=== PATIENT | male | born 1960 | race Caucasian/White ===

== ENCOUNTER 2024-06-19 10:09 | Inpatient (IN) | payer BC ==
[~2024-06-19] VITALS: Ht 182.9 cm; Wt 74.0 kg
--- NOTE | 2024-06-19 16:00 | NUR ---
WENT AND GOT PT FROM ADMISSIONS. BROUGHT PT UP TO FLOOR BY W/C. WITH PT. TRANSPORTED PT HERE FROM [facility]. BELONGINGS BROUGHT TO ROOM. PT ORIENTED TO ROOM AND SURROUNDINGS. PT IS NEAR DEAF AND USES PERSONAL DEVICE TO TRANSLATE WHAT IS BEING SAID TO HIM. INTAKE AND ASSESSMENT COMPLETE. NO FURTHER NEEDS AT THIS TIME. CALL LIGHT WITHIN REACH.
[2024-06-19] MEDS ORDERED: TRESIBA FL200 UNIT/1 SQ (16:24)
[2024-06-19] MEDS ORDERED: LIPITOR20 MG PO (16:25)
[2024-06-19] MEDS ORDERED: ZITHROMAX500 M2 PO (16:26)
[2024-06-19] MEDS ORDERED: ETHAMBUTOL HYD400 MG PO (16:27)
[2024-06-19] MEDS ORDERED: LOPRESSOR 225 MG/TAB PO (16:27)
[2024-06-19] MEDS ORDERED: RIFADIN300 MG PO (16:28)
[2024-06-19] MEDS ORDERED: NEXIUM 20MG20 MG PO (16:29)
[2024-06-19] MEDS ORDERED: OYSCO 500 + D 51 TAB PO (16:29)
[2024-06-19] MEDS ORDERED: NOVLOG SQ (16:30)
[2024-06-19] MEDS ORDERED: Naloxone 0.4 MG/ML VIAL IV PRN (16:30)
[2024-06-19] MEDS ORDERED: Acetaminophen 325 MG TAB PO PRN (16:30)
[2024-06-19] MEDS ORDERED: LASIX 20MG TABL20 MG PO (16:30)
[2024-06-19] MEDS ORDERED: Docusate Sodium 100 MG CAP PO PRN (16:30)
[2024-06-19] MEDS ORDERED: CULTURELLE CAP1 EAC1 PO (16:31)
[2024-06-19] MEDS ORDERED: MAG-OX 400400 MG/TAB PO (16:31)
[2024-06-19] MEDS ORDERED: CLOFAZIMINE PO (16:32)
[2024-06-19] MEDS ORDERED: K-TAB20 PO (16:33)
[2024-06-19] MEDS ORDERED: SODIUM CHLORI1000 M4 PO (16:34)
[2024-06-19] MEDS ORDERED: MASON NATURAL2000 IU PO (16:36)
[2024-06-19] MEDS ORDERED: URE-NA PO (16:36)
[2024-06-19] MEDS ORDERED: B-121000 MCG PO (16:36)
[2024-06-19] MEDS ORDERED: Insulin Lispro (HumaLOG) SQ SCH ×2 (16:41→17:00)
[2024-06-19 17:00] VITALS: BP_SYST 100
[2024-06-19] MEDS ORDERED: Dextrose 50% Water 25 GM/50 ML SYRINGE IV PRN (17:00)
[2024-06-19] MEDS ORDERED: Dextrose (Glucose) 15 GM (4 x 3.75 GM) Chewable TABLET PACK PO PRN (17:00)
[2024-06-19] MEDS ORDERED: Glucagon 1 MG VIAL IM PRN (17:00)
[2024-06-19 17:04] VITALS: BP 100/58; PULSE 83; TEMP 98.2
[2024-06-19] MEDS ORDERED: ALPRAZolam 0.25 MG TAB PO PRN (17:45)
[2024-06-19 19:00] VITALS: BP_SYST 100
[2024-06-19 20:51] VITALS: BP 107/65
[2024-06-19] MEDS ORDERED: Sennosides/Docusate 8.6-50 MG TAB PO SCH (21:00)
[2024-06-19] MEDS ORDERED: Insulin Glargine-ygfn (Lantus) SQ SCH (21:00)
[2024-06-19] MEDS ORDERED: Metoprolol Tartrate 25 MG TAB PO SCH (21:00)
[2024-06-19] MEDS ORDERED: Magnesium Oxide 400 MG TAB PO SCH (21:00)
--- NOTE | 2024-06-19 22:04 | NUR ---
Patient assessed around 2054. Alert and oriented, and able to make needs known. Patient is deaf. Has IPAD in room that writes what is said in room so that patient can read it and respond. Denies having pain and discomfort. Denies SOB and dyspnea. LS CTA. HRR. BSAx4. No edema. Voices no questions, needs, or concerns at this time. In bed with call light within reach. Bed alarm on.
[2024-06-20] MEDS ORDERED: Heparin 5,000 UNITS/ML 1 ML VIAL SQ SCH
[2024-06-20 05:34] VITALS: BP 97/49; PULSE 80; TEMP 98.4
--- NOTE | 2024-06-20 05:57 | NUR ---
Patient called to go to the bathroom during the night. Ambulated well with walker, gait steady. Has denied having pain and discomfort. Voices no questions, needs, or concerns at this time. In bed with call light within reach. Bed alarm on. IPAD next to bed to help with communication due to patient being deaf (IPAD writes out what is being said in room so that he can read it and respond).
[2024-06-20 07:00] VITALS: BP_SYST 97
[2024-06-20] MEDS ORDERED: Esomeprazole 20 MG **** subs to Pantoprazole 20 MG PO SCH (07:00)
--- NOTE | 2024-06-20 08:00 | NUR ---
Pt a&ox4. VSS. No c/o pain at this time. Uses personal device to translate conversations d/t hearing deficits. Currently in bed eating breakfast. Shift assessment complete and medications administered. SBA with walker and gait belt. No further needs at this time. Call light and personal belongings within reach.
[2024-06-20] MEDS ORDERED: Polyethylene Glycol 3350 17 GM PDS PO SCH (09:00)
[2024-06-20] MEDS ORDERED: UREA 15 GM PO SCH (09:00)
[2024-06-20] MEDS ORDERED: Calcium Carb/Vit D3 500 mg-5 mcg(200 Units) TAB PO SCH (09:00)
[2024-06-20] MEDS ORDERED: Furosemide 20 MG TAB PO SCH (09:00)
[2024-06-20] MEDS ORDERED: Cholecalciferol (Vit D3) 25 MCG (1,000 Units) TAB PO SCH (09:00)
[2024-06-20] MEDS ORDERED: Cyanocobalamin (Vit B-12) 1,000 MCG TAB PO SCH (09:00)
--- NOTE | 2024-06-20 16:04 | NUR ---
SW met with patient to complete initial assessment for discharge planning. Patient able to complete assessment with assistance of tablet to communicate due to being severely hard of hearing. Patient confirmed that he lives at home in [place] with his Catrachita ([phone]). He states his is his DPOA. Patient sees Jena Sebastian APRN as his PCP and uses [facility] without difficulty. Patient has a rollator walker, shower chair, bed rail and grab bars. He states he has a CPAP but does not use it. Patient states he has a ramp into his home, there is are stairs inside his home but he does not go downstairs per report. Patient has a caregiver 5 days per week for 6 hours daily. SW educated patient on process of team conferences and updates on discharge planning. Plan for discharge will be dependent on progess with therapy. Discharge plan: re-eval
--- NOTE | 2024-06-20 16:15 | NUR ---
Pt's BS was 130. BS taken from patient's own continuous glucose monitor.
[2024-06-20 18:16] VITALS: BP 101/55; PULSE 71; TEMP 98
[2024-06-20 19:00] VITALS: BP_SYST 101
[2024-06-20] MEDS ORDERED: Atorvastatin 20 MG TAB PO SCH (21:00)
--- NOTE | 2024-06-20 22:19 | NUR ---
PT SITTING IN BED. CALL LIGHT IS WITHIN REACH. NO COMPLAINTS AT THIS TIME. MEDICATIONS ADMINISTERED PER EMAR. ASSESSMENT COMPLETED EARLIER.
--- NOTE | 2024-06-21 00:30 | NUR ---
Patient resting in bed, looks comfortable, respirations even and unlabored.
[2024-06-21 03:52] VITALS: TEMP 98.6
[2024-06-21 05:56] VITALS: BP 114/64; PULSE 91; TEMP 98.4
--- NOTE | 2024-06-21 08:00 | NUR ---
PT A&OX4. VSS. NO C/O PAIN AT THIS TIME. PT IS CURRENTLY UP IN RECLINER EATING BREAKFAST. PT IS A SBA W/ WALKER. SHIFT ASSESSMENT COMPLETE AND MEDS ADMINISTERED. NO FURTHER NEEDS AT THIS TIME. CALL LIGHT WITHIN REACH.
--- NOTE | 2024-06-21 11:57 | NUR ---
SW met with pt to check in and assess for needs. He reports no needs and SW discussed family meeting for Monday at 10:!5am. Pt reports his is arriving for lunch and he will discuss with her and inform IKER. SW provided her number on board. Discharge Plan: re-eval
--- NOTE | 2024-06-21 11:58 | NUR ---
PATIENT'S BS IS 156. PULLED FROM HIS OWN CONTINUOUS GLUCOSE MONITOR.
--- NOTE | 2024-06-21 16:57 | NUR ---
Pt hit arm on rail in bathroom and got a skin tear. Cleaned up area on RFA and applied steri strips.
[2024-06-21 17:40] VITALS: BP 115/62; PULSE 89; TEMP 99
[2024-06-21 19:12] VITALS: BP_SYST 115
--- NOTE | 2024-06-21 20:47 | NUR ---
Patient assessed at this time, see shift assessment, reports headache tylenol given per request,has a dexcom on his abdomen, denies further needs, call light and personal items within reach, will continue to monitor.
[2024-06-21 21:00] VITALS: BP 91/53; PULSE 86
[2024-06-22] VITALS (7 sets, daily range): BP systolic 90–121; BP diastolic 53–61; PULSE 68–105; TEMP 97.7–98
--- NOTE | 2024-06-22 01:14 | NUR ---
Callled Danny the PA and made him aware that patient has been having soft pressures, denies dizziness, no new orders at this time.
[2024-06-22 06:28] LABS: BASO % 0.8 % (0.0-2.0); EOS % 0.4 % (0.0-4.0); GRAN # 1.5 K/mm3 (1.4-6.5); GRAN % 60.6 % (42.2-75.2); LYMPH # 0.6 K/mm3 (1.2-3.4); LYMPH % 24.3 % (20.0-51.0); MEAN CELL VOLUME 82 fl (80.0-100.0); MEAN CORPUSCULAR HGB CONC 33 g/dl (33.0-37.0); MEAN PLATELET VOLUME 10.6 fl (7.4-10.4); MONO # 0.3 K/mm3 (0.1-0.6); MONO % 13.5 % (1.7-9.3); PLATELET COUNT 165 K/mm3 (130-400); RED BLOOD COUNT 2.88 M/mm3 (4.20-5.60); REDCELL DISTRIBUTION WIDTH-CV 17.8 % (11.5-14.5)
[2024-06-22 06:41] LABS: HEMATOCRIT 23.5 % (42.0-52.0); HEMOGLOBIN 7.7 g/dl (13.5-18.0); MEAN CORPUSCULAR HEMOGLOBIN 27 pg (27-31)
[2024-06-22 06:46] LABS: CALCIUM 9.9 mg/dL (8.4-10.2); CREATININE, serum 1.94 mg/dL (0.72-1.25); POTASSIUM 3.8 mEq/L (3.5-4.5)
--- NOTE | 2024-06-22 09:16 | NUR ---
PT UP TO RECLINER FOR BREAKFAST. PT IS SBA X1. UP TO BR VOIDED AND RETURNED TO RECLINER. PT AMBULATED WITH STEADY GAIT. EATING AND DRINKING. PT HAS A GLUTEN INTOLERANCE. CARE PLAN REVIWED AFTER TAKING AM MEDS. PT USING I PAD FOR TRANSLATION OF CONVERSATION FOR HEARING IMPAIRED.
--- NOTE | 2024-06-22 20:55 | NUR ---
Patient assessed at this time, see shift assessment, A/Ox4, reports back pain, requested tylenol and given, denies further needs, call light and personal items within reach, will continue to monitor.
--- NOTE | 2024-06-23 00:28 | NUR ---
Patient up in a chair at this time, reports back pain is fine, will continue to monitor.
--- NOTE | 2024-06-23 01:24 | NUR ---
Patient up to the bathroom at this time and voided, then back to his bed, denies further needs.
[2024-06-23 06:00] VITALS: BP 109/62; PULSE 84; TEMP 98.5
[2024-06-23 06:30] VITALS: BP_SYST 109
--- NOTE | 2024-06-23 09:54 | NUR ---
PT UP TO RECLINER FOR BREAKFAST. UP TO BR WITH SBAX1, VOIDED AND RETURNED TO BED. WATCHING TV AND READING. ASSESSMENTS COMPLETE, VSS, CAREPLAN REVIEWED. PT USING IPAD FOR COMMUNICATION.
--- NOTE | 2024-06-23 19:20 | NUR ---
PT SITTING IN BED. NO COMPLAINTS AT THIS TIME. CALL LIGHT IS WITHIN REACH.
--- NOTE | 2024-06-24 00:49 | NUR ---
ASSESSMENT COMPLETED EARLIER. MEDICATIONS ADMINISTERED PER EMAR. NO COMPLAINTS AT THIS TIME. CALL LIGHT IS WITHIN REACH.
[2024-06-24 05:15] VITALS: BP 116/56; PULSE 92; TEMP 98.5
--- NOTE | 2024-06-24 06:55 | NUR ---
awake sitting up in chair, bedside shift report received from COMFORT Toro
[2024-06-24 06:57] LABS: BASO % 0.8 % (0.0-2.0); GRAN # 1.8 K/mm3 (1.4-6.5); GRAN % 68.3 % (42.2-75.2); LYMPH # 0.5 K/mm3 (1.2-3.4); LYMPH % 20.3 % (20.0-51.0); MEAN CELL VOLUME 83 fl (80.0-100.0); MEAN CORPUSCULAR HGB CONC 33 g/dl (33.0-37.0); MEAN PLATELET VOLUME 11.4 fl (7.4-10.4); MONO # 0.3 K/mm3 (0.1-0.6); MONO % 10.2 % (1.7-9.3); PLATELET COUNT 175 K/mm3 (130-400); RED BLOOD COUNT 2.83 M/mm3 (4.20-5.60); REDCELL DISTRIBUTION WIDTH-CV 17.9 % (11.5-14.5); RETIC % 3.7 % (0.5-3.52)
[2024-06-24 07:03] LABS: HEMATOCRIT 23.5 % (42.0-52.0); HEMOGLOBIN 7.7 g/dl (13.5-18.0); MEAN CORPUSCULAR HEMOGLOBIN 27 pg (27-31)
[2024-06-24 07:12] LABS: CALCIUM 10.1 mg/dL (8.4-10.2); CREATININE, serum 2.11 mg/dL (0.72-1.25); POTASSIUM 4.2 mEq/L (3.5-4.5)
[2024-06-24 07:20] VITALS: BP_SYST 116
--- NOTE | 2024-06-24 08:15 | NUR ---
resting in bed, full assessment completed, see interventions for further info, medicated with tylenol 650mg per patient's request for c/os headache, BP 95/51, denies other needs
[2024-06-24] MEDS ORDERED: Insulin Lispro (HumaLOG) SQ SCH (08:23)
[2024-06-24 08:40] VITALS: BP 95/51
--- NOTE | 2024-06-24 09:50 | NUR ---
occupational therapy in to work with patient and assist him with taking a shower
--- NOTE | 2024-06-24 10:14 | NUR ---
ambulating with steady gait in [place] with occupational therapy
--- NOTE | 2024-06-24 10:57 | NUR ---
out of room and working with physical therapy
--- NOTE | 2024-06-24 13:18 | NUR ---
out of room and working with physical therapy
[2024-06-24 13:55] VITALS: BP 109/56
--- NOTE | 2024-06-24 14:00 | NUR ---
c/o headache, BP 109/56, medicated with tylenol 650mg po per his request
--- NOTE | 2024-06-24 14:52 | NUR ---
Admission QIM scores were reviewed by the team. Code of 4 chosen for 1 step was determined by team discussion to be the most usual performance before interventions for this patient during the assessment period.--PD Liseth
--- NOTE | 2024-06-24 15:17 | NUR ---
resting in bed with TV on, denies needs
[2024-06-24] MEDS ORDERED: Polyethylene Glycol 3350 17 GM PDS PO PRN (16:07)
--- NOTE | 2024-06-24 17:18 | NUR ---
fur floor worker attempted to meet with patient to introduce herself. Patient is hard of hearing and uses a tablet to understand what someone is saying. Patient was fast asleep and could not hear social director to wake to verbal cues. SW will follow up with patient.
[2024-06-24 18:22] VITALS: BP 116/56; PULSE 87; TEMP 97.7
--- NOTE | 2024-06-24 18:57 | NUR ---
bedside shift report given to COMFORT Toro
--- NOTE | 2024-06-24 19:15 | NUR ---
PT SITTING IN BED. AT BEDSIDE. CALL LIGHT IS WITHIN REACH. NO COMPLAINTS AT THIS TIME.
[2024-06-24 19:17] VITALS: BP_SYST 116
--- NOTE | 2024-06-24 21:34 | NUR ---
ASSESSMENT COMPLETED EARLIER. MEDICATIONS ADMINISTERED PER EMAR. NO COMPLAINTS AT THIS TIME. CALL LIGHT IS WITHIN REACH. VSS. PT IS CURRENTLY LAYING IN BED. BED IS IN LOWEST POSITION.
[2024-06-25 06:14] VITALS: BP 115/63; BP_SYST 155; PULSE 84; TEMP 98.3
[2024-06-25 06:50] LABS: BASO % 0.8 % (0.0-2.0); GRAN # 1.7 K/mm3 (1.4-6.5); GRAN % 64.1 % (42.2-75.2); LYMPH # 0.6 K/mm3 (1.2-3.4); LYMPH % 22.4 % (20.0-51.0); MEAN CELL VOLUME 84 fl (80.0-100.0); MEAN CORPUSCULAR HGB CONC 32 g/dl (33.0-37.0); MEAN PLATELET VOLUME 10.8 fl (7.4-10.4); MONO # 0.3 K/mm3 (0.1-0.6); MONO % 12.7 % (1.7-9.3); PLATELET COUNT 146 K/mm3 (130-400); RED BLOOD COUNT 2.82 M/mm3 (4.20-5.60); REDCELL DISTRIBUTION WIDTH-CV 17.9 % (11.5-14.5)
[2024-06-25 06:51] LABS: HEMATOCRIT 23.7 % (42.0-52.0); HEMOGLOBIN 7.5 g/dl (13.5-18.0); MEAN CORPUSCULAR HEMOGLOBIN 27 pg (27-31)
[2024-06-25 07:00] VITALS: BP_SYST 115
[2024-06-25 07:03] LABS: CALCIUM 10.1 mg/dL (8.4-10.2); CREATININE, serum 1.99 mg/dL (0.72-1.25); POTASSIUM 4.2 mEq/L (3.5-4.5)
--- NOTE | 2024-06-25 08:00 | NUR ---
PT A&OX4. VSS. NO C/O PAIN AT THIS TIME. USED PT'S OWN DEVICE TO COMMUNICATE W/ HIM D/T HEARING LOSS. SHIFT ASSESSMENT COMPLETE AND MEDICATIONS ADMINISTERED. PT IS SBA W/ WALKER. NO FURTHER NEEDS AT THIS TIME. CALL LIGHT WITHIN REACH.
--- NOTE | 2024-06-25 11:36 | NUR ---
Pt's BS is 211 at this time. BS pulled from pt's own CGM device.
--- NOTE | 2024-06-25 16:45 | NUR ---
pt's BS was 199. BS pulled from pt's Agilvax.
[2024-06-25 17:42] VITALS: BP 100/51; PULSE 78; TEMP 78
[2024-06-25 19:00] VITALS: BP_SYST 100
--- NOTE | 2024-06-25 19:12 | NUR ---
PT LAYING IN BED. NO COMPLAINTS AT THIS TIME. CALL LIGHT IS WITHIN REACH. LAP SITES WERE OBSERVED-CDI. PT CURRENTLY HAS ZOSYN RUNNING IN . HAS O2 VIA N/C. BED IS IN LOWEST POSITION.
--- NOTE | 2024-06-25 20:27 | NUR ---
PT BG IS 181 PER DEXCOM
--- NOTE | 2024-06-25 21:48 | NUR ---
ASSESSMENT COMPLETED EARLIER. MEDICATIONS ADMINISTERED PER EMAR. NO COMPLAITNS AT THIS TIME. CALL LIGHT IS WITHIN REACH. PT HAD BEEN UP TO URINATE MULTIPLE TIMES.
[2024-06-26 05:02] VITALS: BP 103/50; PULSE 92; TEMP 98.3
--- NOTE | 2024-06-26 06:53 | NUR ---
Pt's BS was 208. BS pulled from pt's own dexcom.
[2024-06-26 07:00] VITALS: BP_SYST 103
--- NOTE | 2024-06-26 08:41 | NUR ---
PT A&OX4. VSS. NO C/O PAIN AT THIS TIME. SHIFT ASSESSMENT COMPLETE AND MEDICATIONS ADMINISTERED. COMMUNICATE WITH PT USING PT'S OWN DEVICE FOR TRANSLATION D/T DEAFNESS. PT IS A SBA W/ WALKER. NO FURTHER NEEDS AT THIS TIME. PT CURRENTLY SITTING ON EDGE OF BED EATING BREAKFAST. CALL LIGHT WITHIN REACH.
--- NOTE | 2024-06-26 11:50 | NUR ---
PT'S BS IS 194. PT'S BS WAS PULLED FROM PT'S OWN DEXCOM.
--- NOTE | 2024-06-26 16:49 | NUR ---
PT'S BS IS 163. BS WAS PULLED FROM PT'S OWN DEXCOM.
--- NOTE | 2024-06-26 17:35 | NUR ---
music worker attended IPR team conference to discuss discharge plan. The team would like to set discharge date for Monday next week with either home health or OP PT/OT. SW attended family meeting with patient, his , son and IPR team. Patient is okay with discharge on Monday and would like OP PT at [facility] in . No equipment needs. IKER met with patient, reviewed and provided a copy of the IPR team conference notes. No questions or concerns. IKER was notified by Eden, IPR director, that patient's insurance denied additional days for patient and he would need to discharge on Monday. IKER notified patient's whom reported she would be okay to mushroom picker patient at 5 pm on Monday. IKER notified patient whom initially asked why that happened but was okay with returning home with OP PT on Monday. Discharge plan: Home with OP PT 06/28/24
[2024-06-26 17:55] VITALS: BP 121/68; PULSE 78; TEMP 98.1
[2024-06-26 19:18] VITALS: BP_SYST 121
--- NOTE | 2024-06-26 19:18 | NUR ---
PT LAYING IN BED RESTING. CALL LIGHT IS WITHIN REACH.
--- NOTE | 2024-06-26 20:50 | NUR ---
PT BG 163 PER DEXCOM
--- NOTE | 2024-06-26 22:22 | NUR ---
ASSESSMENT COMPLETED EARLIER. MEDICATIONS ADMINISTERED PER EAMR. NO COMPLAINTS AT THIS TIME. CALL LIGHT IS WITHIN REACH. VSS. PT SITTING IN CHAIR CURRENTLY
[2024-06-27 05:50] VITALS: BP 111/61; PULSE 71; TEMP 97.7
[2024-06-27 07:34] LABS: BASO % 0.5 % (0.0-2.0); GRAN # 1.3 K/mm3 (1.4-6.5); GRAN % 58.6 % (42.2-75.2); LYMPH # 0.6 K/mm3 (1.2-3.4); LYMPH % 26.3 % (20.0-51.0); MEAN CELL VOLUME 82 fl (80.0-100.0); MEAN CORPUSCULAR HGB CONC 32 g/dl (33.0-37.0); MEAN PLATELET VOLUME 10.9 fl (7.4-10.4); MONO # 0.3 K/mm3 (0.1-0.6); MONO % 14.6 % (1.7-9.3); PLATELET COUNT 143 K/mm3 (130-400); RED BLOOD COUNT 2.93 M/mm3 (4.20-5.60); REDCELL DISTRIBUTION WIDTH-CV 18.1 % (11.5-14.5)
[2024-06-27 07:35] LABS: HEMATOCRIT 24.1 % (42.0-52.0); HEMOGLOBIN 7.8 g/dl (13.5-18.0); MEAN CORPUSCULAR HEMOGLOBIN 27 pg (27-31)
[2024-06-27 07:50] VITALS: BP_SYST 111
[2024-06-27 07:50] LABS: CALCIUM 10.2 mg/dL (8.4-10.2); CREATININE, serum 1.94 mg/dL (0.72-1.25); POTASSIUM 4.1 mEq/L (3.5-4.5)
--- NOTE | 2024-06-27 09:28 | NUR ---
PT AMB IN ROOM SBA WITH WALKER, STEADY. PT GOT OWN CLOTHES, MOVED ACROSS ROOM WITH WALKER, DRESSED SELF WITH ONLY STANBDY FROM NURSE. PT DEAF, COMMUNICATES VERBALLY AND BY USING ELECTRONIC DEVICE TO TRANSLATE. PT C/O HEADACHE, GIVEN REQUESTED TYLENOL, DENIES OTHER NEEDS.
--- NOTE | 2024-06-27 11:44 | NUR ---
PT BACK TO ROOM, IN CHAIR, WITH CHAIRPAD. DENIES NEEDS. HOLDING INSULING UNTIL FOOD IT BEDSIDE. CALL LT IN REACH OF PT.
--- NOTE | 2024-06-27 15:22 | NUR ---
overhead line worker faxed clinical referral for outpatient PT to [facility] in [place]. Patient is scheduled to discharge tomorrow. DIscharge plan: Home with outpatient PT
[2024-06-27 18:03] VITALS: BP 114/63; PULSE 69; TEMP 97.9
--- NOTE | 2024-06-27 18:44 | NUR ---
PATIENT SITTING UP IN RECLINER WITH TV ON WITH NO FAMILY PRESENT WITH NO ACUTE DISTRESS NOTED. PATIENT ON ROOM AIR. BEDSIDE SHIFT REPORT COMPLETED WITH PANKAJ AT THIS TIME. PATIENT DENIES ANY NEEDS. RECLINER LOCKED AND CALL LIGHT WITHIN REACH. CHAIR ALARM ON.
[2024-06-27 20:22] VITALS: BP_SYST 114
--- NOTE | 2024-06-27 21:44 | NUR ---
PATIENT RESTING IN BED WITH EYES CLOSED WITH TV ON WITH NO FAMILY PRESENT WITH NO ACUTE DISTRESS NOTED. PATIENT EASILY AROUSED TO LIGHT SHOULDER TOUCH. PATIENT ON ROOM AIR. ASSESSMENT AND MEDICATION ADMINISTRATION COMPLETED AT THIS TIME. PATIENT TOLERATED WELL. PATIENT DENIES ANY OTHER NEEDS. BED IN LOW POSITION WITH WHEELS LOCKED WITH RAILS UP X3 AND CALL LIGHT WITHIN REACH. BED ALARM ON.
--- NOTE | 2024-06-27 23:40 | NUR ---
PATIENT CALLED AND REQUESTED HELP TO BATHROOM. PATIENT ASSISTED TO BATHROOM WITH STAND BY ASSIST. RAVEN TREADWELL. PATIETN VOIDED AND AMBULATED TO SINK TO WASH HANDS. PATIENT THEN AMBULATED BACK TO BED. PATIENT DENIES ANY OTHER NEEDS. SCATTERED BRUSING NOTED AROUND LOWER ABDOMEN WHILE PATIENT IN BATHROOM. BED IN LOW POSITION WITH WHEELS LOCKED WITH RAILS UP X3 AND CALL LIGHT WITHIN REACH. BED ALARM ON.
[2024-06-28 05:53] VITALS: BP 104/54; PULSE 116; TEMP 98.1
[2024-06-28 07:25] VITALS: BP_SYST 104
--- NOTE | 2024-06-28 07:26 | NUR ---
[facility]
--- NOTE | 2024-06-28 08:02 | NUR ---
SHIFT ASSESSMENT COMPLETED AT THIS TIME. PT A&OX4. PT RESTING IN CHAIR UPON ENTRANCE. PT DENIES PAIN, SOB, AND NAUSEA AT THIS TIME. MORNING MEDICATIONS ADMINSITERED AT THIS TIME WITH FOOD. PT TOLERATED WELL WITH NO COMPLICATIONS. PT HAS SCATTERED BRUISING ON ABDOMEN. PT HAS NO OTHER CONCERNS OR NEEDS AT THIS TIME.
--- NOTE | 2024-06-28 11:33 | NUR ---
Social work student called [facility] to schedule an appointment for outpatient PT for Pt. The appointment is on July 05, 2024 at 11am. SW student called Pt's , Catrachita (p# [phone]), and informed her of the up coming appointment and was agreeable to. [facility]
[2024-06-28] MEDS ORDERED: Acetamin/Butalbital/Caffeine 325-50-40 MG TAB PO ONE (16:00)
--- NOTE | 2024-06-28 17:21 | NUR ---
DISCHARGE ORDERS RECIEVED. PT EDUCATION AND IONSTRUCTIONS PROVIDED AT THIS TIME. AT BEDSIDE. PT VOICES UNDERTANDING. PT ESCPRTED VIA WHEELCHAIR TO PRIVATE VEHICLE WITH .
--- NOTE | 2024-07-01 15:29 | NUR ---
Discharge QIM scores were reviewed by the team. Code of 6 chosen for oral hygiene was determined by team discussion to be the most usual performance for this patient during the discharge assessment period. Code of 6 chosen for toileting hygiene was determined by team discussion to be the most usual performance for this patient during the discharge assessment period. Code of 6 chosen for toilet transfers was determined by team discussion to be the most usual performance for this patient during the discharge assessment period. Code of 6 chosen for shower/bathe self was determined by team discussion to be the most usual performance for this patient during the discharge assessment period. Code of 6 chosen for lower body dressing was determined by team discussion to be the most usual performance for this patient during the discharge assessment period. Code of 6 chosen for putting on/taking off footwear was determined by team discussion to be the most usual performance for this patient during the discharge assessment period. Code of 6 chosen for sit to stand was determined by team discussion to be the most usual performance for this patient during the discharge assessment period. Code of 6 chosen for chair to bed was determined by team discussion to be the most usual performance for this patient during the discharge assessment period. Code of 6 chosen for walking 50 feet w/ 2 turns was determined by team discussion to be the most usual performance before interventions for this patient during the discharge assessment period. Code of 6 chosen for walking 150 feet was determined by team discussion to be the most usual performance for this patient during the discharge assessment period. Code of 6 chosen for walk 10 feet on uneven surface was determined by team discussion to be the most usual performance for this patient during the discharge assessment period. Code of 6 chosen for poultry picking machine tender objects was determined by team discussion to be the most usual performance for this patient during the discharge assessment period.--Eden Pruitt,
== END 2024-06-28 17:22 | disposition home or self-care (01) | DRG 948 ==
PROVIDERS: Internal Medicine; Physician Assistant; ADMIT Physical Medicine & Rehabilitation Sports Medicine
DX: R53.81 Other malaise (principal); D61.818 Other pancytopenia; N17.9 Acute kidney failure, unspecified; A31.8 Other mycobacterial infections; Z66 Do not resuscitate; I35.0 Nonrheumatic aortic (valve) stenosis; R63.4 Abnormal weight loss; I25.10 Atherosclerotic heart disease of native coronary artery without angina pectoris; E11.22 Type 2 diabetes mellitus with diabetic chronic kidney disease; I12.9 Hypertensive chronic kidney disease with stage 1 through stage 4 chronic kidney disease, or unspecified chronic kidney disease; R53.83 Other fatigue; K21.9 Gastro-esophageal reflux disease without esophagitis; H91.90 Unspecified hearing loss, unspecified ear; K29.70 Gastritis, unspecified, without bleeding; F41.9 Anxiety disorder, unspecified; M21.371 Foot drop, right foot; M21.372 Foot drop, left foot; E78.5 Hyperlipidemia, unspecified; G47.33 Obstructive sleep apnea (adult) (pediatric); N18.30 Chronic kidney disease, stage 3 unspecified; Z79.2 Long term (current) use of antibiotics; Z87.891 Personal history of nicotine dependence; Z79.4 Long term (current) use of insulin; Z79.85 Long-term (current) use of injectable non-insulin antidiabetic drugs; Z79.899 Other long term (current) drug therapy; D69.6 Thrombocytopenia, unspecified; Z95.1 Presence of aortocoronary bypass graft; Z95.2 Presence of prosthetic heart valve; Z68.22 Body mass index [BMI] 22.0-22.9, adult
CPT/HCPCS: A9284; J1644; J1815